=== PATIENT | female | born 1965 | race Caucasian/White ===

== ENCOUNTER 2020-08-09 15:44 | Emergency (ER) | payer OTHER ==
[~2020-08-09] VITALS: Ht 165.1 cm; Wt 72.6 kg
[2020-08-09] MEDS ORDERED: ONDANSETRON ODT 4 MG TAB.RAPDIS ONE (16:08)
--- NOTE | 2020-08-09 16:08 | NUR ---
Patient was seen by . Meds given as ordered. Patient states her will drive her home and states she understands all precautions and warnings of morphine
[2020-08-09] MEDS ORDERED: MORPHINE SULFATE 4 MG/1 ML DISP.SYRIN ONE (16:09)
[2020-08-09] MEDS ORDERED: MORPHINE SULFATE 4 MG/1 ML DISP.SYRIN IM ONE (16:15)
[2020-08-09] MEDS ORDERED: ONDANSETRON ODT 4 MG TAB.RAPDIS SL ONE (16:15)
[2020-08-09 16:16] VITALS: BP 130/77
--- NOTE | 2020-08-09 16:21 | NUR ---
DC, RX (WITH ALL PRECAUTIONS) AND FOLLOW UP INSTRUCTIONS GIVEN AND EXPLAINED TO PATIENT WHO STATES SHE UNDERSTANDS ALL INSTRUCTIONS
== END 2020-08-09 16:42 | disposition home or self-care (01) ==
LOC: ER 15:47
DX: G89.29 Other chronic pain (principal); M51.27 Other intervertebral disc displacement, lumbosacral region; M25.551 Pain in right hip
CPT/HCPCS: 96372; 99283; J2270; A4663; Q0162